=== PATIENT | male | born 1985 | race Hispanic/Latino ===

== ENCOUNTER 2020-10-14 22:09 | Emergency (ER) | payer OTHER ==
[~2020-10-14] VITALS: Ht 180.3 cm; Wt 86.4 kg
[2020-10-14] MEDS ORDERED: IBUPROFEN 800 MG TAB PO ONE (22:55)
--- NOTE | 2020-10-14 23:11 | REPVR ---
PROCEDURE INFORMATION: Exam: XR Left Ankle Exam date and time: 10/14/20 (10:35pm) Age: 35 years old Clinical indication: Left ankle injury. Sprain or strain. TECHNIQUE: Imaging protocol: XR Left ankle Views: 3 or more views COMPARISON: No relevant prior studies available FINDINGS: Bones/joints: Unremarkable. No acute fracture nor dislocation. Soft tissues: Moderate soft tissue swelling laterally. IMPRESSION: No acute fracture nor dislocation. Moderate soft tissue swelling laterally at the left ankle. Electronically signed by: Anna French On 10/14/2020 23:11:20 PM
[2020-10-14 23:59] VITALS: BP 141/70
== END 2020-10-15 00:22 | disposition home or self-care (01) ==
LOC: M ED 22:09
DX: S93.402A Sprain of unspecified ligament of left ankle, initial encounter (principal); X50.1XXA Overexertion from prolonged static or awkward postures, initial encounter; Y92.099 Unspecified place in other non-institutional residence as the place of occurrence of the external cause; Y93.66 Activity, soccer; Y99.9 Unspecified external cause status